=== PATIENT | female | born 1935 | race Caucasian/White ===

== ENCOUNTER 2017-06-19 14:52 | Inpatient (IN) | payer MEDICARE ==
[~2017-06-19] VITALS: Ht 167.6 cm; Wt 48.7 kg
[~2017-06-19 14:52] MED LIST: GLAUCOMA EYE DROPS EACHEYE
[2017-06-19] MEDS ORDERED: MORPHINE SULFATE 4 MG/ML, 1ML ONE (15:25)
[2017-06-19] MEDS ORDERED: PROMETHAZINE 25 MG/ML, 1ML ONE (15:25)
[2017-06-19] MEDS ORDERED: FENTANYL PF 100 MCG/2ML ONE (15:28)
[2017-06-19] MEDS ORDERED: PROMETHAZINE 25 MG/ML, 1ML IM ONE (15:30)
[2017-06-19] MEDS ORDERED: SODIUM CHLORIDE 0.9% 1,000ML IVBOLUS ONE (15:30)
[2017-06-19] MEDS ORDERED: MORPHINE SULFATE 4 MG/ML, 1ML IVPush PRN (15:30)
[2017-06-19 16:05] LABS: MEAN CORPUSCULAR HEMOGLOBIN 30.6 pg (27.0-34.8); MEAN CORPUSCULAR VOLUME 92.7 fL (80-100); MEAN PLATELET VOLUME 9.1 fL (7.4-10.4); PLATELET COUNT 434 x10^3/uL (130-400); RED BLOOD COUNT 4.47 x10^6/uL (3.82-5.3); RED CELL DISTRIBUTION WIDTH 14.5 % (9.6-15.2)
[2017-06-19 16:16] LABS: ALANINE AMINOTRANSFERASE 24 U/L (12-78); ALBUMIN 4.3 g/dL (3.4-5.0); ANION GAP 12 mmol/L (5-15); CALCIUM 10.4 mg/dL (8.5-10.1); CHLORIDE 107 mmol/L (98-107); CREATININE 1.28 mg/dL (0.55-1.02)
[2017-06-19 16:18] LABS: ALKALINE PHOSPHATASE 66 U/L (45-117); BILIRUBIN,TOTAL 0.6 mg/dL (0.2-1.0); TOTAL PROTEIN 7.6 g/dL (6.4-8.2)
[2017-06-19 16:33] LABS: MD YES
[2017-06-19 16:35] LABS: BAND#(MANUAL) 1.36 x10^3/uL; BANDS%(MANUAL) 6 % (0-7); LYMPH#(MANUAL) 3.16 x10^3/uL (1-3.4); LYMPHS% (MANUAL) 14 % (22-44); MONOS#(MANUAL) 0.45 x10^3/uL (0.3-2.7); MONOS% (MANUAL) 2 % (2-9); SEG#(MANUAL) 17.63 x10^3/uL (1.8-6.8); SEGS% (MANUAL) 78 % (42-75)
[2017-06-19 16:36] LABS: <PLATELET ESTIMATE> ADEQUATE; <RBC MORPHOLOGY> NORMAL; LARGE PLATELETS 1+
[2017-06-19] MEDS ORDERED: PROMETHAZINE 25 MG/ML, 1ML IM PRN (18:30)
[2017-06-19] MEDS ORDERED: hydrALAzine 20 MG/ML, 1ML IVPush PRN (18:30)
[2017-06-19] MEDS ORDERED: morphine SULFATE 10 MG/ML, 1ML IVPush PRN (18:30)
[2017-06-19 20:00] VITALS: BP 112/58
[2017-06-19] MEDS: D5%-0.45% NACL 1,000 ML IV SCH (20:09)
[2017-06-19 20:13] VITALS: BP 112/58
[2017-06-20 01:12] VITALS: BP 109/64
[2017-06-20] MEDS: D5%-0.45% NACL 1,000 ML IV SCH ×2 (04:11→11:32)
[2017-06-20 04:34] LABS: BASOPHILS # (AUTO) 0.03 x10^3/uL (0-0.1); BASOPHILS % (AUTO) 0 % (0-1); EOSINOPHILS # (AUTO) 0.13 x10^3/uL (0-0.4); EOSINOPHILS % (AUTO) 2 % (1-7); LYMPHOCYTES # (AUTO) 0.94 x10^3/uL (1-3.4); LYMPHOCYTES % (AUTO) 12 % (22-44); MD NO; MEAN CORPUSCULAR HEMOGLOBIN 31.9 pg (27.0-34.8); MEAN CORPUSCULAR HGB CONC 33.9 g/dL (32.4-35.8); MEAN CORPUSCULAR VOLUME 94.3 fL (80-100); MEAN PLATELET VOLUME 8.9 fL (7.4-10.4); MONOCYTES # (AUTO) 0.61 x10^3/uL (0.2-0.8); MONOCYTES % (AUTO) 8 % (2-9); NEUTROPHILS # (AUTO) 6.04 x10^3/uL (1.8-6.8); NEUTROPHILS % (AUTO) 78 % (42-75); PLATELET COUNT 343 x10^3/uL (130-400); RED BLOOD COUNT 3.58 x10^6/uL (3.82-5.3); RED CELL DISTRIBUTION WIDTH 14.4 % (9.6-15.2)
[2017-06-20 04:41] LABS: ANION GAP 6 mmol/L (5-15); CALCIUM 8.5 mg/dL (8.5-10.1); CHLORIDE 109 mmol/L (98-107)
[2017-06-20 04:42] LABS: CREATININE 0.92 mg/dL (0.55-1.02)
[2017-06-20 06:45] VITALS: BP 130/74
[2017-06-20 13:21] VITALS: BP 119/65
== END 2017-06-20 14:30 | disposition home or self-care (01) | DRG 682 ==
LOC: ED 16:02 → EDIP 17:22 → 3NW 19:44
PROVIDERS: ADMIT Hospitalist; ATTEND Hospitalist
DX: N17.0 Acute kidney failure with tubular necrosis (principal); R65.11 Systemic inflammatory response syndrome (SIRS) of non-infectious origin with acute organ dysfunction; E86.0 Dehydration; D72.829 Elevated white blood cell count, unspecified; H40.9 Unspecified glaucoma; K80.20 Calculus of gallbladder without cholecystitis without obstruction; N39.498 Other specified urinary incontinence; Z80.6 Family history of leukemia; Z82.0 Family history of epilepsy and other diseases of the nervous system; Z82.3 Family history of stroke; Z85.038 Personal history of other malignant neoplasm of large intestine; Z85.42 Personal history of malignant neoplasm of other parts of uterus; Z87.891 Personal history of nicotine dependence; Z90.710 Acquired absence of both cervix and uterus; Z93.3 Colostomy status; Z90.49 Acquired absence of other specified parts of digestive tract; Z94.7 Corneal transplant status
CPT/HCPCS: 36415; 74176; 80048; 80053; 83690; 85025; 93005; 96361; 96372; 96374; J2550; J7030